=== PATIENT | male | born 1950 | race Caucasian/White ===

== ENCOUNTER 2018-12-30 08:18 | Emergency (ER) | payer MEDICARE, OTHER ==
--- NOTE | 2018-12-30 08:28 | ED Physician Documentation ---
General Adult - HISTORIAN Historian: patient - HPI Stated Complaint: urinary retention Chief Complaint: Male Genitourinary Problems Timing: still present Severity: moderate Further Comments: yes (He states starting at around midnight he states he started to only dribble urine and he could not adequately void. He has no fever. States he does feel he could be constipated. No swelling in penis or testicles. No drainage from penis. No pain with urination prior per his report) Last known Well Code/Unknown Code: Unknown - ROS CONST: no problems GI/: problems urinating. denies: abdominal pain, vomiting, nausea - PAST HX Past History: hypertension Immunizations: UTD Allergies/Adverse Reactions: Allergies Allergy/AdvReac Type Severity Reaction Status Date / Time Penicillins Allergy Unknown Verified 12/30/18 08:56 - SOCIAL HX Smoking History: cigarettes Alcohol Use: none Drug Use: none - FAMILY HX Family History: No - REVIEWED ASSESSMENTS Nursing Assessment Reviewed: Yes Vitals Reviewed: Yes Progress - Progress Progress: 0925: Post cath he does report relief from pressure DG 0951: Discussed results and plan. He is agreeable - continues to be pain free DG 1200: results discussed and plan he is agreeable DG ED Results Lab/Radiology - Radiology Radiology Impressions: HISTORY: 68-year-old male with urinary retention, abdominal bloating COMPARISON: None available TECHNIQUE: Supine views of the abdomen and frontal view of the chest were performed. FINDINGS CHEST: No pneumothorax, pulmonary edema, or consolidative infiltrates. The heart is not enlarged. There is left acromioclavicular hypertrophy and possible old left distal clavicle fracture. ABDOMEN: No abnormal bowel dilatation. Gas is present in the distal colon. No abnormal calcifications are identified overlying the urinary tract. Corbett catheters present in the urinary bladder. There are phleboliths in the pelvis. There is lumbar degenerative disc disease. IMPRESSION: 1. No acute intrathoracic process. 2. No evidence of bowel obstruction. Electronically signed on Dec 30, 2018 9:39:30 AM CDT by: Sagar Greco TECHNIQUE: 5 mm contiguous axial images of the abdomen and pelvis with IV contrast. With; 95 ML OMNI 350 IV CONTRAST. FINDINGS: The liver, pancreas and spleen are normal in appearance. The gallbladder demonstrates small hyperdense lesions in gallbladder wall which may reflect adenomyosis. There is no hydronephrosis or nephrolithiasis. Are bilateral adrenal nodules measure 1.4 cm. There is no right hydronephrosis. There is mild dilatation of the proximal bilateral ureters without evidence of obstructing lesion. There is enhancing of the ureters which could reflect urinary tract infection. A Corbett catheter decompresses the urinary bladder. Prostate gland is enlarged. The bowel loops are nondistended. There is no ascites or pneumoperitoneum. Appendix is normal. No destructive osseous lesions. IMPRESSION: 1. Corbett catheter in bladder with enlarged prostate gland. There is mild dilatation the bilateral ureters which demonstrate wall hyperenhancement. This could reflect urinary tract infection. Correlation with urinalysis recommended. 2. Findings which could reflect adenomyosis. Gallbladder ultrasound could be obtained if clinically indicated. 3. Adrenal nodules, incompletely evaluated. MRI recommended. Electronically signed on Dec 30, 2018 11:51:24 AM CDT by: Rey Acosta General Adult Physical Exam - PHYSICAL EXAM GENERAL APPEARANCE: mild distress EENT: eye inspection normal, no signs of dehydration NECK: normal inspection RESPIRATORY: no resp distress, chest non-tender, breath sounds normal CVS: reg rate & rhythm, heart sounds normal ABDOMEN: soft, normal bowel sounds, no distension SKIN: warm/dry EXTREMITIES: non-tender, normal range of motion, no evidence of injury, no edema NEURO: oriented X3 Discharge Clincal Impression: Enlarged prostate UTI (urinary tract infection) Qualifiers: Urinary tract infection type: site unspecified Hematuria presence: without hematuria Qualified Code(s): N39.0 - Urinary tract infection, site not specified Referrals: Primary Doctor,No [Primary Care Provider] - 2 Days Comments: 1. Bactrim DS take 1 by mouth twice daily x 10 days 2. Flomax 0.4 mg take 1 by mouth daily 3. Increase fluids 4. Urinate when you feel the urge 5. Follow up with PCP [facility] 6. Return to ER for any concerns Condition: Stable Disposition: 01 HOME, SELF-CARE Decision to Admit: NO Date of Decison to Admit: 12/30/18 Decision Time: 12:00
[2018-12-30 09:32] LABS: APPEARANCE,URINE CLEAR (CLEAR); COLOR,URINE YELLOW (YELLOW); OCCULT BLOOD,URINE TRACE-LYSED (NEGATIVE); PH URINE 5.5 (5.0 - 8.0); UROBILINOGEN URINE 0.2 Eu (0.2-1.0)
[2018-12-30] MEDS ORDERED: 0.9 % SODIUM CHLORIDE 1,000 ML IV ONE (09:46)
[2018-12-30 10:05] LABS: MEAN CORPUSCULAR HEMOGLOBIN 31.6 pg (28.0-34.0)
[2018-12-30 10:06] LABS: BASOPHILS % 0.4 (0.0-1.5); NEUTROPHILS # 10.8 # k/uL (1.4-7.7)
[2018-12-30 10:13] LABS: eGFR (Non-African) > 60
--- NOTE | 2018-12-30 10:28 | Diagnostic Imaging Report ---
MOHINDER AMEZCUA [facility] [address] [facility] [address] [place], [place]. [address] Report Submission Date: Dec 30, 2018 9:39:30 AM CDT Patient Study Name: SD BO Date: Dec 30, 2018 8:48:36 AM CDT Modality Type: DX Gender: M Description: ABD SERIES PA CHEST : 54 Institution: [facility] Physician: MOHINDER AMEZCUA HISTORY: 68-year-old male with urinary retention, abdominal bloating COMPARISON: None available TECHNIQUE: Supine views of the abdomen and frontal view of the chest were performed. FINDINGS CHEST: No pneumothorax, pulmonary edema, or consolidative infiltrates. The heart is not enlarged. There is left acromioclavicular hypertrophy and possible old left distal clavicle fracture. ABDOMEN: No abnormal bowel dilatation. Gas is present in the distal colon. No abnormal calcifications are identified overlying the urinary tract. Corbett catheters present in the urinary bladder. There are phleboliths in the pelvis. There is lumbar degenerative disc disease. IMPRESSION: 1. No acute intrathoracic process. 2. No evidence of bowel obstruction. Electronically signed on Dec 30, 2018 9:39:30 AM CDT by: Sagar BUTTERFIELD
--- NOTE | 2018-12-30 12:00 | Diagnostic Imaging Report ---
MOHINDER AMEZCUA [facility] [address] [facility] [address] [place], [place]. [address] Report Submission Date: Dec 30, 2018 11:51:24 AM CDT Patient Study Name: SD BO Date: Dec 30, 2018 10:44:19 AM CDT Modality Type: CT Gender: M Description: CT ABD PELVIS W/ CON : 54 Institution: [facility] Physician: MOHINDER AMEZCUA CT abdomen and pelvis with contrast CLINICAL HISTORY: URINARY DIFFICULTY, ABDOMINAL PAIN AND BLOATING. 95 ML OMNI 350 IV CONTRAST. (Hx) / ITS.REASON urinary difficulty (DICOM Hx) TECHNIQUE: 5 mm contiguous axial images of the abdomen and pelvis with IV contrast. With; 95 ML OMNI 350 IV CONTRAST. FINDINGS: The liver, pancreas and spleen are normal in appearance. The gallbladder demonstrates small hyperdense lesions in gallbladder wall which may reflect adenomyosis. There is no hydronephrosis or nephrolithiasis. Are bilateral adrenal nodules measure 1.4 cm. There is no right hydronephrosis. There is mild dilatation of the proximal bilateral ureters without evidence of obstructing lesion. There is enhancing of the ureters which could reflect urinary tract infection. A Corbett catheter decompresses the urinary bladder. Prostate gland is enlarged. The bowel loops are nondistended. There is no ascites or pneumoperitoneum. Appendix is normal. No destructive osseous lesions. IMPRESSION: 1. Corbett catheter in bladder with enlarged prostate gland. There is mild dilatation the bilateral ureters which demonstrate wall hyperenhancement. This could reflect urinary tract infection. Correlation with urinalysis recommended. 2. Findings which could reflect adenomyosis. Gallbladder ultrasound could be obtained if clinically indicated. 3. Adrenal nodules, incompletely evaluated. MRI recommended. Electronically signed on Dec 30, 2018 11:51:24 AM CDT by: Rey BUTTERFIELD
[2018-12-30 12:47] VITALS: BP 167/96
== END 2018-12-30 12:47 | disposition home or self-care (01) ==
LOC: ED 08:18
DX: N40.1 Benign prostatic hyperplasia with lower urinary tract symptoms (principal); R33.9 Retention of urine, unspecified; N39.0 Urinary tract infection, site not specified
CPT/HCPCS: 36415; 51702; 74022; 74177; 80053; 81002; 85025; 99283; 99284; Q9967; S1016